=== PATIENT | female | born 1990 | race Caucasian/White ===

== ENCOUNTER 2017-07-01 15:12 | Emergency (ER) | payer OTHER ==
[2017-07-01 15:24] VITALS: BMI 29.9
[2017-07-01 16:15] VITALS: BP 110/54; PULSE 69; TEMP 98.3
== END 2017-07-01 16:25 | disposition home or self-care (01) ==
LOC: JER 15:12
DX: O26.892 Other specified pregnancy related conditions, second trimester (principal); R10.13 Epigastric pain; R10.31 Right lower quadrant pain; Z3A.20 20 weeks gestation of pregnancy
CPT/HCPCS: 99281-25

== ENCOUNTER 2017-09-03 07:15 | Emergency (ER) | payer OTHER ==
[2017-09-03 07:30] VITALS: BP 115/81; PULSE 80; TEMP 99.1; BMI 29.5
--- NOTE | 2017-09-03 07:30 | PDOC ---
History of Present Illness - General History Source: Patient Exam Limitations: No Limitations - History of Present Illness Initial Comments: 09/03/17 07:38 The patient is a 27 year old female who is currently A0, with a significant past medical history of eczema, who presents to the emergency department with a sore throat for the past 5 days. She reports that she has been proned to sore throats in the past especially during her current . She states that she been taking tea and honey, with little to no relief of her sore throat. She notes that her job is very physically demanding which has not helped her recovery process. She reports headache, cough fatigue, body aches and a subjective fever. She describes her cough as dry in nature. She also describes her headache as mild, without radiation or modifying factors. She notes that her 2 year old son has been sick recently. She denies any recent travel. She denies vaginal discharge and vaginal bleeding. She does report decreased movement. The patient denies chest pain, shortness of breath, and dizziness. Denies nausea , vomit, diarrhea and constipation. Denies dysuria, frequency, urgency and hematuria. Allergies: None Past surgical history: None reported Social history: No alcohol, tobacco or drug use reported <Hermes Fritz - Last Filed: 09/03/17 07:47> <Cielo Mendoza - Last Filed: 09/03/17 07:59> - General Chief Complaint: Sore Throat Stated Complaint: SORE THROAT Time Seen by Provider: 09/03/17 07:30 Past History <Hermes Fritz - Last Filed: 09/03/17 07:47> - Past Medical History Asthma: No Cancer: No Cardiac Disorders: No Diabetes: No HTN: No Seizures: No Thyroid Disease: No Other medical history: ECZEMA - Suicide/Smoking/Psychosocial Hx Smoking History: Never smoked Have you smoked in the past 12 months: No Number of Cigarettes Smoked Daily: 0 Hx Alcohol Use: No Drug/Substance Use Hx: No Substance Use Type: None Hx Substance Use Treatment: No <Cielo Mendoza - Last Filed: 09/03/17 07:59> - Past Medical History Allergies/Adverse Reactions: Allergies Allergy/AdvReac Type Severity Reaction Status Date / Time No Known Drug Allergies Allergy Verified 09/03/17 07:23 seasonal Allergy Uncoded 09/03/17 07:23 Home Medications: Ambulatory Orders Vit #108/Iron/FA [ One Tablet] 1 each PO DAILY 10/15/14 Review of Systems - Review of Systems Able to Perform ROS?: Yes Comments:: 09/03/17 07:39 GENERAL/CONSTITUTIONAL: (+) Fever, body fatigue. No chills. HEAD, EYES, EARS, NOSE AND THROAT: (+) Sore throat. No change in vision. No ear pain or discharge. CARDIOVASCULAR: No chest pain or shortness of breath RESPIRATORY: (+) Cough. No wheezing, or hemoptysis. GASTROINTESTINAL: No nausea, vomiting, diarrhea or constipation. GENITOURINARY: No dysuria, frequency, or change in urination. MUSCULOSKELETAL: No joint or muscle swelling or pain. No neck or back pain. SKIN: No rash NEUROLOGIC: (+) Headache. No vertigo, loss of consciousness, or change in strength/sensation. ENDOCRINE: No increased thirst. No abnormal weight change HEMATOLOGIC/LYMPHATIC: No anemia, easy bleeding, or history of blood clots. ALLERGIC/IMMUNOLOGIC: No hives or skin allergy. <Hermes Fritz - Last Filed: 09/03/17 07:47> *Physical Exam - Vital Signs Last Vital Signs Temp Pulse Resp BP Pulse Ox 99.1 F 80 20 115/81 100 09/03/17 07:20 09/03/17 07:20 09/03/17 07:20 09/03/17 07:20 09/03/17 07:20 - Physical Exam Comments: 09/03/17 07:39 GENERAL: Awake, alert, and fully oriented, in no acute distress HEAD: No signs of trauma, normocephalic, atraumatic EYES: PERRLA, EOMI, sclera anicteric, conjunctiva clear ENT: (+) Erythematous oropharynx. Auricles normal inspection, hearing grossly normal, nares patent, Moist mucosa NECK: Normal ROM, supple, no lymphadenopathy, JVD, or masses LUNGS: No distress, speaks full sentences, clear to auscultation bilaterally HEART: Regular rate and rhythm, normal S1 and S2, no murmurs, rubs or gallops, peripheral pulses normal and equal bilaterally. ABDOMEN: (+) Gravid. Soft, nontender, normoactive bowel sounds. No guarding, no rebound. No masses EXTREMITIES : Normal inspection, Normal range of motion, no edema. No clubbing or cyanosis. NEUROLOGICAL: Cranial nerves II through XII grossly intact. Normal speech, normal gait, no focal sensorimotor deficits SKIN: Warm, Dry, normal turgor, no rashes or lesions noted. <Hermes Fritz - Last Filed: 09/03/17 07:47> - Vital Signs Last Vital Signs Temp Pulse Resp BP Pulse Ox 99.1 F 80 20 115/81 100 09/03/17 07:20 09/03/17 07:20 09/03/17 07:20 09/03/17 07:20 09/03/17 07:20 <Cielo Mendoza - Last Filed: 09/03/17 07:59> Medical Decision Making - Medical Decision Making 09/03/17 07:56 pt presents to the ED complaining of subjective fever, runny nose and sore throat x 5 days. No signs of otitis media or strep throat. Patient also complains of decreased movement without abdominal pain or vaginal bleeding. Upper respiratory symptoms are consistent with viral URI. Will discharge to L and D for monitoring. <Cielo Mendoza - Last Filed: 09/03/17 07:59> *DC/Admit/Observation/Transfer - Attestations Scribe Attestion: 09/03/17 07:40 Documentation prepared by Hermes Fritz, acting as medical dermatologist for Cielo Mendoza MD <Hermes Fritz - Last Filed: 09/03/17 07:47> - Discharge Dispostion Admit: No <Cielo Mendoza - Last Filed: 09/03/17 07:59> Diagnosis at time of Disposition: Viral upper respiratory tract infection - Discharge Dispostion Disposition: HOME Condition at time of disposition: Good - Patient Instructions Printed Discharge Instructions: DI for Viral Upper Respiratory Infection -- Adult Additional Instructions: Return to the ED for severe sore throat, unable to swallow or breathe, high fever, abdominal pain or vaginal bleeding.
== END 2017-09-03 08:09 | disposition home or self-care (01) ==
LOC: JER 07:15
DX: J06.9 Acute upper respiratory infection, unspecified (principal); B97.89 Other viral agents as the cause of diseases classified elsewhere
CPT/HCPCS: 99281-25

== ENCOUNTER 2017-11-11 01:45 | Inpatient (IN) | payer OTHER ==
[2017-11-11] MEDS ORDERED: AMPICILLIN SODIUM 2 GM VIAL ONE (05:42)
[2017-11-11 05:58] VITALS: BMI 30.1
[2017-11-11] MEDS ORDERED: DEXTROSE 5%-LACTATED RINGERS 1,000 ML IV SCH (06:00)
[2017-11-11] MEDS ORDERED: AMPICILLIN - 2 GM in SODIUM CHLORIDE 100 ML IVPB ONE (06:00)
[2017-11-11 06:43] LABS: BASO % 0.3 % (0-2.0); HEMATOCRIT 30.9 % (32.4-45.2); HEMOGLOBIN 10.4 GM/dL (10.7-15.3); LYMPH % 12.2 % (8-40); MCH 28.5 pg (25.7-33.7); MCHC 33.7 g/dl (32.0-36.0); MEAN CELL VOLUME 84.6 fl (80-96); MEAN PLT VOLUME 11.4 fl (7.5-11.1); MONO % 7.6 % (3.8-10.2); NEUT % 78.9 % (42.8-82.8); PLATELET COUNT 130 K/MM3 (134-434); RBC 3.65 M/mm3 (3.60-5.2); RDW 13.5 % (11.6-15.6); WHITE BLOOD COUNT 6.4 K/mm3 (4.0-10.0)
[2017-11-11 06:57] LABS: INR 0.99 (0.82-1.09); PROTHROMBIN TIME (PATIENT) 11.2 SEC (9.98-11.88)
[2017-11-11 06:59] LABS: ACTIVATED PTT 25.4 SECONDS (26.9-34.4)
[2017-11-11] MEDS ORDERED: OXYTOCIN 20 UNITS in 0.9% NS 20 UNIT/1,000 ML INFUS.BAG IV ONE (07:12)
[2017-11-11] MEDS ORDERED: OXYTOCIN 15 UNITS/ LR 250 ML 15 UNIT/250 ML INFUS.BAG IVPB ONE (07:12)
[2017-11-11 07:15] LABS: ANION GAP 10 (8-16); CALCIUM 8.4 mg/dL (8.5-10.1); CHLORIDE 107 mmol/L (98-107); CO2 23 mmol/L (21-32); CREATININE 0.6 mg/dL (0.55-1.02); GLUCOSE,RANDOM 79 mg/dL (74-106); SODIUM 140 mmol/L (136-145)
[2017-11-11 07:16] LABS: BLOOD UREA NITROGEN 3 mg/dL (7-18)
[2017-11-11] MEDS: OXYTOCIN 15 UNITS/ LR 250 ML 15 UNIT/250 ML INFUS.BAG IVPB SCH ×2 (08:40→10:40)
[2017-11-11] MEDS ORDERED: TUBERCULIN PPD 5 TU/0.1ML SYRINGE (IN PATIENT USE ONLY) ID ONE (09:00)
--- NOTE | 2017-11-11 09:24 | HP ---
Past Medical History - Admission History of Present Illness: 27 yo @ 39 0/7 wks by first trimester ultrasound, [facility]C 11/18/2017 complicated by: 1. GBS positive, no penicillin allergy 2. History of shortened cervix - s/p [facility] 09/12, 09/13 Patient presents with chief complaint of contractions and pressure. She was examined, found to be approximately 4 cm .She reports movement, denies leakage of fluid or vaginal bleeding. History Source: Patient - Past Medical History Cardiovascular: No: HTN Pulmonary: No: Asthma Gastrointestinal: No: GERD ...: 2 ...Para: 1 ...Term: 1 ...: 0 ...Spon : 0 ...Induced : 0 ...Multiple Gestation: 0 ...LMP: 02/18/17 ... Weeks Gestation by Dates: 38.0 ...EDC by Dates: 11/25/17 ...EDC by Sono: 11/18/17 Heme/Onc: No: Anemia Dermatology: Yes: Eczema - Past Surgical History Past Surgical History: Yes: None Hx Myomectomy: No Hx Transabdominal Cerclage: No - Smoking History Smoking history: Never smoked Have you smoked in the past 12 months: No Aproximately how many cigarettes per day: 0 - Alcohol/Substance Use Hx Alcohol Use: No Home Medications - Allergies Allergies/Adverse Reactions: Allergies Allergy/AdvReac Type Severity Reaction Status Date / Time No Known Drug Allergies Allergy Verified 11/11/17 05:44 seasonal AdvReac Mild Uncoded 11/11/17 05:44 - Home Medications Home Medications: Ambulatory Orders Vit 108/Iron/Folic AC [ One Tablet] 1 each PO DAILY 10/15/14 Review of Systems - Review of Systems Constitutional: reports: No Symptoms HENT: reports: No Symptoms Neck: reports: No Symptoms Respiratory: reports: No Symptoms Gastrointestinal: reports: No Symptoms Genitourinary: reports: No Symptoms Musculoskeletal: reports: No Symptoms Integumentary: reports: No Symptoms Neurological: reports: No Symptoms Hematology/Lymphatic: reports: No Symptoms Psychiatric: reports: No Symptoms Physical Exam - Maternity Vital Signs: Vital Signs Temperature 98.2 F 11/11/17 08:00 Pulse Rate 75 11/11/17 08:00 Respiratory Rate 18 11/11/17 08:00 Blood Pressure 115/65 11/11/17 08:00 O2 Sat by Pulse Oximetry (%) Constitutional: Yes: Well Nourished, No Distress, Calm Cardiovascular: Yes: Regular Rate and Rhythm Lungs: Clear to auscultation - Abdominal Exam/OB Fundal Height: 40 Number of Fetuses: Single Presentation: Vertex Contractions: Yes Regularity: Irregular Intensity: Moderate Monitor Mode: External Heart Rate (range): 140 Category: I Accelerations: Non-Uniform Decelerations: None - Vaginal Exam/OB Vaginal Bleediing: No - Physical Exam Extremities: Yes: Internal Rotation Psychiatric: Yes: Alert, Oriented - Labs Lab Results: CBC, BMP 11/11/17 06:28 11/11/17 06:28 PNL - O positive, antibody negative; RPR NR; HBS Ag negative; Rubella Immune; HIV negative; GBS positive Hemorrhage Risk Assessment - Risk Factors Medium Risk Factors: Yes: None High Risk Factors: Yes: None Risk Score: 1 Risk Level: Medium Risk Assessment/Plan 27 yo @ 39 0/7 wks early labor 1. Admit to L&D 2. Consents reviewed and signed 3. Admission labs reviewed 4. Plan for augmentation of labor with pitocin 5. GBS positive, will continue ampicillin protocol 6. Will offer pain control upon patient request 7. will proceed with expectant management
[2017-11-11] MEDS: AMPICILLIN - 1 GM in SODIUM CHLORIDE 100 ML IVPB SCH ×3 (10:00→20:11)
--- NOTE | 2017-11-11 11:59 | PN ---
Ante-Partal Exam - Subjective Subjective: Patient reports pain with contractions Vital Signs: Vital Signs Temperature 98.7 F 11/11/17 10:00 Pulse Rate 77 11/11/17 11:00 Respiratory Rate 18 11/11/17 11:00 Blood Pressure 124/66 11/11/17 11:00 O2 Sat by Pulse Oximetry (%) Bleeding: No Headache: No Visual changes: No Right upper quadrant pain: No - Contractions Contractions: Yes Regularity: Regular Intensity: Moderate Monitor Mode: External - Exam during Labor Heart Rate: 140 Variability: Moderate Category: II Monitor Decelerations: Variable Exam: Vaginal Dilatation (cm): 6-7 Effacement (%): 100 Amniotic Membrane Status: Ruptured Presentation: Vertex Station: -1 - Intrapartum Hemorrhage Risk Medium Risk Factors: None High Risk Factors: None Risk Score: 0 Risk Level: Low Risk - Assessment/Plan Assessment/Plan: 27 yo pitocin augmentation 1. Good cervical change 2. Continue pitocin 3. continue ampicillin 4.will continue expectant management, anticipate vaginal delivery
[2017-11-11] MEDS ORDERED: BUTORPHANOL TARTRATE 1 MG/ML VIAL IVPUSH ONE (12:16)
[2017-11-11] MEDS ORDERED: PROMETHAZINE HCL 25 MG/1 ML VIAL IVPUSH ONE (12:16)
[2017-11-11] MEDS ORDERED: LIDOCAINE HCL 1% PRESERVATIVE FREE - 30ML VIAL ONE (13:26)
[2017-11-11] MEDS ORDERED: BENZOCAINE 28 GM HEMORRHOIDAL OINTMENT TP PRN (13:56)
[2017-11-11] MEDS ORDERED: METHYLERGONOVINE MALEATE 0.2 MG/1 ML AMP IM PRN (13:56)
[2017-11-11] MEDS ORDERED: oxyCODONE HCL 5 MG TABLET PO PRN (13:56)
[2017-11-11] MEDS ORDERED: IBUPROFEN 600 MG TABLET (FP) PO PRN (13:56)
[2017-11-11] MEDS ORDERED: ACETAMINOPHEN 325 MG TABLET (FP) PO PRN (13:56)
[2017-11-11] MEDS ORDERED: BENZOCAINE 20% 57 GM BOTTLE TP PRN (13:56)
[2017-11-11] MEDS ORDERED: BISACODYL 10 MG SUPP.RECT RC PRN (13:56)
[2017-11-11] MEDS ORDERED: WITCH HAZEL 50% (TUCKS) 40 PAD/JAR PAD TP PRN (13:56)
[2017-11-11] MEDS ORDERED: OXYTOCIN 20 UNITS in 0.9% NS 20 UNIT/1,000 ML INFUS.BAG IV SCH (14:00)
--- NOTE | 2017-11-11 14:00 | PN ---
Delivery - Delivery Vaginal Delivery: No Problems Type of Anesthesia: None Episiotomy/Laceration: None EBL (cc): 300 Delivery, Single - Stages of Labor Date 1st Stage Initiatied: 11/11/17 Time 1st Stage Initiated: 09:00 Date 2nd Stage Initiated: 11/11/17 Time 2nd Stage Initiated: 13:25 Date of Delivery: 11/11/17 Time of Delivery: 13:39 Date Placenta Delivered: 11/11/17 Time Placenta Delivered: 13:45 Placenta: Yes: Spontaneous - Condition of Gender: Female Position: OA Total Hours ROM (Hrs/Mins): 2 hours 15 minutes - 1 Minute Total Score: 9 5 Minutes Total Score: 9 - [place] Feeding Plan Initial Plan: Elected not to breastfeed exclusively throughout hospitalization Remarks - Remarks Remarks: Patient progressed to fully dilated and [id number] delivered a viable female in direct OA position, APGARs 9,9. Weight and length unknown at this time. Head delivered spontaneously followed by shoulders and body without difficulty. Infant with spontaneous cry and placed on mother's abdomen. Nose and mouth was bulb suctioned. Cord was clamped and cut. Perineum and vagina examined, no lacerations were noted. Rectal exam revealed no sutures in rectum. Placenta was delivered spontaneously and intact. 20 units of pitocin in 1 L IVF was given. All counts correct x 2. Mother and infant stable in LDR. EBL 300cc.
[2017-11-12 09:01] LABS: BASO % 0.6 % (0-2.0); EOS % 1.1 % (0-4.5); HEMATOCRIT 32.1 % (32.4-45.2); HEMOGLOBIN 10.3 GM/dL (10.7-15.3); LYMPH % 11.4 % (8-40); MCH 27.4 pg (25.7-33.7); MCHC 32.1 g/dl (32.0-36.0); MEAN CELL VOLUME 85.4 fl (80-96); MEAN PLT VOLUME 11.2 fl (7.5-11.1); MONO % 6.9 % (3.8-10.2); PLATELET COUNT 122 K/MM3 (134-434); RBC 3.76 M/mm3 (3.60-5.2); RDW 13.5 % (11.6-15.6); WHITE BLOOD COUNT 7.9 K/mm3 (4.0-10.0)
[2017-11-12 09:33] LABS: ANION GAP 9 (8-16); CALCIUM 8.2 mg/dL (8.5-10.1); CHLORIDE 110 mmol/L (98-107); CO2 23 mmol/L (21-32); CREATININE 0.6 mg/dL (0.55-1.02); GLUCOSE,RANDOM 83 mg/dL (74-106); POTASSIUM 3.3 mmol/L (3.5-5.1); SODIUM 142 mmol/L (136-145)
[2017-11-12] MEDS ORDERED: OXYTOCIN 20 UNITS in 0.9% NS 20 UNIT/1,000 ML INFUS.BAG IV SCH (10:00)
[2017-11-12] MEDS: PRENATAL VITAMINS W/ FOLIC ACID TABLET (FP) PO SCH (10:08)
[2017-11-12 10:18] LABS: BLOOD UREA NITROGEN 2 mg/dL (7-18)
--- NOTE | 2017-11-12 11:09 | PN ---
Post Progress Note - Subjective Subjective: Patient without acute complaints. Reports tolerating oral intake without nausea or vomiting. Ambulating without dizziness. Denies fevers or chills. Pain well controlled with oral pain medication. without difficulty. Passing flatus. Post Day: 1 Type of Delivery: Vital Signs: Vital Signs Temperature 98.2 F 11/12/17 04:46 Pulse Rate 78 11/12/17 04:46 Respiratory Rate 18 11/12/17 04:46 Blood Pressure 113/61 11/12/17 04:46 O2 Sat by Pulse Oximetry (%) Breast Exam: Yes: Engorged Uterus: Yes: Fundus Firm, Fundus below umbilicus Abdomen/GI: Yes: Abdomen soft, Passing flatus, Tolerating PO. No: Tender Lochia: Yes: Serosa Lochia, amount: Small Extremities: Yes: Calves non-tender. No: Edema Activity: Ambulating - Labs Labs: CBC WBC 7.9 K/mm3 (4.0-10.0) 11/12/17 08:45 RBC 3.76 M/mm3 (3.60-5.2) 11/12/17 08:45 Hgb 10.3 GM/dL (10.7-15.3) L 11/12/17 08:45 Hct 32.1 % (32.4-45.2) L 11/12/17 08:45 MCV 85.4 fl (80-96) 11/12/17 08:45 MCH 27.4 pg (25.7-33.7) 11/12/17 08:45 MCHC 32.1 g/dl (32.0-36.0) 11/12/17 08:45 RDW 13.5 % (11.6-15.6) 11/12/17 08:45 Plt Count 122 K/MM3 (134-434) L 11/12/17 08:45 MPV 11.2 fl (7.5-11.1) H 11/12/17 08:45 Neutrophils % 80.0 % (42.8-82.8) 11/12/17 08:45 Lymphocytes % 11.4 % (8-40) 11/12/17 08:45 Monocytes % 6.9 % (3.8-10.2) 11/12/17 08:45 Eosinophils % 1.1 % (0-4.5) 11/12/17 08:45 Basophils % 0.6 % (0-2.0) 11/12/17 08:45 Assessment/Plan 27 yo PPD #1 s/p , afebrile, vital signs stable, doing well 1. Continue routine care. 2. AM CBC without signs of anemia 3. Rh positive status, no rhogam indicated. 4. Potassium noted to be low on admission, repeat today improved 5. Continue oral pain medication 6. Anticipate discharge home day #2
--- NOTE | 2017-11-12 11:14 | DS ---
Physical Exam-ENVIRONMENTAL LABORATORY TECHNICIAN Vital Signs: Vital Signs Temperature 98.2 F 11/12/17 04:46 Pulse Rate 78 11/12/17 04:46 Respiratory Rate 18 11/12/17 04:46 Blood Pressure 113/61 11/12/17 04:46 O2 Sat by Pulse Oximetry (%) Labs: CBC, BMP 11/12/17 08:45 11/12/17 08:45 Delivery - Delivery Vaginal Delivery: No Problems Type of Anesthesia: None Episiotomy/Laceration: None EBL (cc): 300 Delivery, Single - Stages of Labor Date 1st Stage Initiatied: 11/11/17 Time 1st Stage Initiated: 09:00 Date 2nd Stage Initiated: 11/11/17 Time 2nd Stage Initiated: 13:25 Date of Delivery: 11/11/17 Time of Delivery: 13:39 Time Placenta Delivered: 13:45 Placenta: Yes: Spontaneous - Condition of Infant Avionics Systems Technician/Pipe Buffer Present: No Infant Gender: Female Weight: 6 lb 15 oz Position: OA Total Hours ROM (Hrs/Mins): 2 hours 15 minutes - 1 Minute Total Score: 9 5 Minutes Total Score: 9 - Feeding Plan Initial Plan: Elected not to breastfeed exclusively throughout hospitalization Discharge Summary Reason For Visit: LABOR ADMIT vaginal delivery Procedures: Principal: vaginal delivery Hospital Course: patient admitted, s/p vaginal delivery she remained afebrile, vital signs stable achieving criteria for discharge home PPD #2 - Instructions - Home Medications Comprehensive Discharge Medication List: Ambulatory Orders Vit 108/Iron/Folic AC [ One Tablet] 1 each PO DAILY 10/15/14
[2017-11-12] MEDS ORDERED: DIPHTH,PERTUSS(ACELL),TET 0.5 ML DISP.SYRIN IM ONE (17:00)
[2017-11-12] MEDS ORDERED: SENNOSIDES/DOCUSATE COMBO (SENNA PLUS) TABLET (UD) PO PRN (22:00)
[2017-11-12 22:41] VITALS: PULSE 66
[2017-11-13 08:02] VITALS: BP 120/72; TEMP 98.1
[2017-11-13] MEDS: PRENATAL VITAMINS W/ FOLIC ACID TABLET (FP) PO SCH (09:10)
== END 2017-11-13 13:10 | disposition home or self-care (01) | DRG 775 ==
LOC: JDEL 01:45 → JLDR 05:30 → J3W 15:05
PROVIDERS: ADMIT Obstetrics & Gynecology; ATTEND Obstetrics & Gynecology
PROC: 10E0XZZ Delivery of Products of Conception, External Approach (ICD-10-PCS; principal; 2017-11-11)
DX: O99.824 Streptococcus B carrier state complicating childbirth (principal); Z3A.39 39 weeks gestation of pregnancy; Z37.0 Single live birth
CPT/HCPCS: 36415; 59409; 80048; 85025; 85610; 85730; 86593; 86850; 86900; 86901; 87389; 90715

== ENCOUNTER 2019-02-11 20:58 | Emergency (ER) | payer OTHER ==
[2019-02-11 21:09] VITALS: BP 112/80; PULSE 70; TEMP 98.3; BMI 31.1
--- NOTE | 2019-02-11 21:27 | PDOC ---
History of Present Illness - General History Source: Patient Exam Limitations: No Limitations - History of Present Illness Initial Comments: 02/11/19 21:26 A portion of this note was documented by scribe services under my direction. I have reviewed the details of the note, within reason, and agree with the documentation with the following case summary and management plan written by me. Patient treated in the ED. Nursing notes are reviewed and incorporated into the medical decision-making. Vital signs reviewed. Assessment and plan: This is a 29-year-old female who comes in with a superficial laceration over the medial aspect of her second finger. Laceration was cleaned with peroxide and closed with Dermabond. Patient tolerated well. <Charan Rosales I - Last Filed: 02/11/19 21:25> - General History Source: Patient Exam Limitations: No Limitations - History of Present Illness Initial Comments: 02/11/19 21:28 The patient is a 29 year old female, who presents to the ED complaining of a laceration at the base of her left index finger that occurred today. She notes that she was cutting an avocado when the knife slipped and she cut herself. She denies any rust on the knife. On presentation there is no active bleeding. The patient denies any other kind of injuries. PAST MEDICAL HISTORY: Eczema PAST SURGICAL HISTORY: no significant history FAMILY HISTORY: no pertinent history SOCIAL HISTORY: Pt lives with family and is employed. MEDICATIONS: reviewed ALLERGIES: As per nursing notes General: No fevers or chills, no weakness, no weight loss HEENT: No change in vision. No sore throat. No ear pain CardioVascular: No chest pain or shortness of breath Respiratory:No cough, or wheezing. Gastrointestinal: no nausea, vomiting, diarrhea or constipation, No rectal bleeding Genitourinary: No dysuria, hematuria, or frequency Musculoskeletal: No joint or muscle pain or swelling Neurologic: No headache, vertigo, dizziness or loss of consciousness Psychiatric: nor depression Skin: (+) Laceration to the base of the left index finger. No rashes or easy bruising Endocrine: no increased thirst or abnormal weight change Allergic: no skin or latex allergy All other systems reviewed and normal GENERAL: The patient is awake, alert, and fully oriented, in no acute distress. HEAD: Normal with no signs of trauma. EYES: Pupils equal, round and reactive to light, extraocular movements intact, sclera anicteric, conjunctiva clear. HANDS: (+) Left second finger superficial laceration 2 cm over the medial portion of the first phalanges. Neurovascularly intact. EXTREMITIES: Normal range of motion, no edema. NEUROLOGICAL: Normal speech, normal gait. PSYCH: Normal mood, normal affect. SKIN: Warm, Dry, normal turgor, no rashes or lesions noted. <Hermes Fritz - Last Filed: 02/11/19 21:29> - General Chief Complaint: Laceration Stated Complaint: LEFT 2ND FINGER LACERATION Time Seen by Provider: 02/11/19 21:00 Past History - Past Medical History Asthma: No Cancer: No Cardiac Disorders: No COPD: No Diabetes: No HTN: No Seizures: No Thyroid Disease: No - Suicide/Smoking/Psychosocial Hx Smoking History: Never smoked Have you smoked in the past 12 months: No Number of Cigarettes Smoked Daily: 0 Information on smoking cessation initiated: No Hx Alcohol Use: No Drug/Substance Use Hx: No Substance Use Type: None Hx Substance Use Treatment: No <Charan Rosales I - Last Filed: 02/11/19 21:25> <Hermes Fritz - Last Filed: 02/11/19 21:29> - Past Medical History Allergies/Adverse Reactions: Allergies Allergy/AdvReac Type Severity Reaction Status Date / Time No Known Drug Allergies Allergy Verified 02/11/19 20:59 seasonal AdvReac Mild Uncoded 02/11/19 20:59 Home Medications: Ambulatory Orders Norethindrone-E.estradiol-Iron [Lo Loestrin Fe 1-10 Tablet] 1 tab PO DAILY 02/11 *Physical Exam - Vital Signs Last Vital Signs Temp Pulse Resp BP Pulse Ox 98.3 F 70 16 112/80 100 02/11/19 20:58 02/11/19 20:58 02/11/19 20:58 02/11/19 20:58 02/11/19 20:58 <Charan Rosales I - Last Filed: 02/11/19 21:25> - Vital Signs Last Vital Signs Temp Pulse Resp BP Pulse Ox 98.3 F 70 16 112/80 100 02/11/19 20:58 02/11/19 20:58 02/11/19 20:58 02/11/19 20:58 02/11/19 20:58 <Hermes Fritz - Last Filed: 02/11/19 21:29> *DC/Admit/Observation/Transfer <Charan Rosales I - Last Filed: 02/11/19 21:25> - Attestations Scribe Attestion: 02/11/19 21:29 Documentation prepared by Hermes Fritz, acting as medical technologist blood bank for Charan Rosales MD <Hermes Fritz - Last Filed: 02/11/19 21:29> Diagnosis at time of Disposition: Finger laceration Qualifiers: Encounter type: initial encounter Finger: index finger Damage to nail status: without damage Foreign body presence: without foreign body Laterality: left Qualified Code(s): S61.211A - Laceration without foreign body of left index finger without damage to nail, initial encounter - Discharge Dispostion Disposition: HOME Condition at time of disposition: Stable - Referrals Referrals: Emil Callaway MD [Primary Care Provider] - - Patient Instructions Printed Discharge Instructions: DI for Laceration Repair With Dermabond Additional Instructions: Read over and follow Dermabond instructions do not use any petroleum based product on the Dermabond as it will cause it to, for early. Return to the emergency department immediately with ANY new, persistent or worsening symptoms. Continue any medications as previously prescribed by your physician. You should follow up with your primary doctor as soon as possible regarding today's emergency department visit. . Please make sure your doctor reviews the results of your emergency evaluation. Thank you for coming to the Emergency Department today for your care. It was a pleasure to see you today. Please note that your evaluation is INCOMPLETE until you follow-up with your doctor. - Post Discharge Activity
== END 2019-02-11 21:33 | disposition home or self-care (01) ==
LOC: FER 20:58 → SUPCPDRO 20:58 → FER 21:33
PROC: 0HQ0XZZ Repair Scalp Skin, External Approach (ICD-10-PCS; principal; 2019-02-11)
DX: S61.211A Laceration without foreign body of left index finger without damage to nail, initial encounter (principal); W26.0XXA Contact with knife, initial encounter; Y93.G1 Activity, food preparation and clean up; Y92.89 Other specified places as the place of occurrence of the external cause; L30.9 Dermatitis, unspecified
CPT/HCPCS: 99283-25